=== PATIENT | male | born 1965 | race Two or more races ===

== ENCOUNTER 2019-07-02 18:48 | Emergency (ER) | payer BC ==
[2019-07-02 19:00] VITALS: BP 163/89
--- NOTE | 2019-07-02 19:12 | UC ---
Ear Complaint HPI - HPI Summary HPI Summary: ONSET YESTERDAY OF RIGHT EAR FEELING CLOGGED. HEARING MUTED. MILD DISCOMFORT. NO FEVER, NAUSEA OR URI SX. USED DEBROX WITH NO IMPROVEMENT. - History of Current Complaint Chief Complaint: UCEar Stated Complaint: BLOCKAGE IN EAR Time Seen by Provider: 07/02/19 18:54 Hx Obtained From: Patient Onset/Duration: Gradual Onset, Lasting Days, Still Present Severity Initially: Mild Severity Currently: Mild Pain Intensity: 0 Pain Scale Used: 0-10 Numeric Aggravating Factors: Nothing Alleviating Factors: Nothing Associated Signs/Symptoms: Positive: Hearing Loss. Negative: Discharge, URI Symptoms - Allergies/Home Medications Allergies/Adverse Reactions: Allergies Allergy/AdvReac Type Severity Reaction Status Date / Time No Known Allergies Allergy Verified 07/02/19 19:00 PMH/Surg Hx/FS Hx/Imm Hx Other Cancer History: THYROID CANCER - Surgical History Surgical History: Yes Surgery Procedure, Year, and Place: thyroidectomy - Family History Known Family History: Positive: Non-Contributory - Social History Alcohol Use: None Substance Use Type: None Smoking Status (MU): Never Smoked Tobacco Review of Systems All Other Systems Reviewed And Are Negative: Yes Constitutional: Positive: Negative Skin: Positive: Negative ENT: Positive: Ear Ache, Other - MUTED HEARING Respiratory: Positive: Negative Cardiovascular: Positive: Negative Gastrointestinal: Positive: Negative Physical Exam Triage Information Reviewed: Yes Appearance: Well-Appearing, No Pain Distress, Well-Nourished Vital Signs: Initial Vital Signs Temp 99.8 F 07/02/19 18:56 Pulse 89 07/02/19 18:56 Resp 16 07/02/19 18:56 BP 163/89 07/02/19 18:56 Pulse Ox 100 07/02/19 18:56 Vital Signs Reviewed: Yes Eyes: Positive: Conjunctiva Clear ENT: Positive: Hearing grossly normal, Pharynx normal, Other - LEFT TM SEEN TO BE NORMAL AFTER IRRIGATION OF EAC. RIGHT TM RETRACTED. RETAINED CERUMEN IN RIGHT EAC WITH EDEMA Neck: Positive: Supple Respiratory: Positive: No respiratory distress, No accessory muscle use Cardiovascular: Positive: Pulses Normal Abdomen Description: Positive: Soft Musculoskeletal: Positive: No Edema Neurological: Positive: Alert Psychological: Positive: Age Appropriate Behavior Skin: Negative: Rashes Ear Complaint Course/Dx - Course Course Of Treatment: LEFT EAC SUCCESSFULLY IRRIGATED BY RN. SOME CERUMEN IRRIGATED FROM RIGHT EAC BUT SOME RETAINED. PT NOTES MILD IMPROVEMENT IN HEARING BUT NOT FULLY. EXAM CONSISTENT WITH OTITIS EXTERNA. CIPRODEX EAR DROPS AND F/U WITH ENT. - Differential Dx/Diagnosis Provider Diagnosis: Bilateral impacted cerumen, Right otitis externa Discharge ED - Sign-Out/Discharge Documenting (check all that apply): Patient Departure All imaging exams completed and their final reports reviewed: No Studies - Discharge Plan Condition: Stable Disposition: HOME Prescriptions: Ciproflox/Dexameth OTIC.SUSP* [Ciprodex Otic*] 4 drop RIGHT EAR BID #1 bottle Patient Education Materials: Otitis Externa (ED), Cerumen Impaction (ED) Referrals: Willie Gee MD [Medical Doctor] - 1 Week Gera Soler MD [Primary Care Provider] - If Needed Additional Instructions: ONCE YOUR EAR CANALS ARE CLEAR OF WAX YOU MAY USE A QTIP TO GENTLY AND CAREFULLY CLEAN YOUR EARS ONCE OR TWICE A WEEK TO KEEP WAX FROM BUILDING UP. DO NOT INSERT THE QTIP ANY FURTHER THAN THE DEPTH OF THE [place] SWAB. YOUR LEFT EAR CANAL IS CLEAR. YOUR RIGHT EAR CANAL HAS SOME RETAINED WAX AND LOOKS EDEMATOUS. WILL COVER FOR EXTERNAL EAR INFECTION WITH CIPRODEX EAR DROPS. IF YOUR SYMPTOMS ARE NOT RESOLVED AFTER 1 WEEK SEEK FOLLOW-UP WITH ENT. - Billing Disposition and Condition Condition: STABLE Disposition: Home
== END 2019-07-02 20:01 | disposition home or self-care (01) ==
LOC: UCEAST 18:48
DX: H61.23 Impacted cerumen, bilateral (principal); H60.91 Unspecified otitis externa, right ear
CPT/HCPCS: 99213; G0463